=== PATIENT | male | born 1955 | race Caucasian/White ===

== ENCOUNTER → 2020-05-17 14:24 | Outpatient (CLI) | payer BC, SELFPAY | PROVIDERS: PCP Family Medicine; Visit Provider Physician Assistant | DX: R00.1 Bradycardia, unspecified (principal) | CPT/HCPCS: 93225; 93226 ==

== ENCOUNTER → 2020-06-05 14:51 | Outpatient (CLI) | payer BC, SELFPAY ==
--- NOTE | 2020-06-05 14:56 | CA_ITS ---
APPROVED REPORT EXAM: Comprehensive 2D, Doppler, and color-flow Echocardiogram Control Officer: Criss Gilliam RVT Ht: 6 ft 4 in Wt: 250lbs BSA: 2.44 BP: 190/90 mmHg Indications: HTN,PEDERSON 2D Dimensions LVOT 2.57 cm (M/F) 1.5-2.5 LA Volume 22.60 mL LA Volume Index 9.30 mL/m2 (M/F) 16-34 M-Mode Dimensions RVDd 2.72 cm (0.9-2.6) LA Diam 3.88 cm (1.9-4.0) LVDd 4.97 cm (3.5-5.7) Ao Diam 3.64 cm (2.0-3.7) LVDs 3.27 cm (3.5-5.7) IVSd 1.15 cm (0.6-1.1) PWd 0.98 cm (0.6-1.1) EF (Teich) 63.00% FS 34.20% EDV (Teich) 116.60 mL ESV (Teich) 43.20 mL LV Diastology E Decel Time 247.00 (160-240 msec) E/A Ratio 1.0 MED E' 6.50 (< 7 cm/sec) E'/MED E' Ratio 9.95 (>14) LAT E' 6.80 (<10 cm/sec) E/LAT E' Ratio 9.51 (>14) Aortic Valve AI PHT 2288.00 ms Mitral Valve MV E Max Seth. 65.00 (40-130 cm/s) MV A Velocity 64.00 (40-130 cm/s) E/A Ratio 1.01 MV Decel. Time 247.00 (160-240 ms) MV PHT 72.00 ms Pulmonary Valve PV Peak Velocity 92.00 (50-150 cm/s) Tricuspid Valve TR P. Velocity 276.00 cm/s RAP Estimate 10.00 mmHg RVSP 40.50 mmHg Left Ventricle Left atrium is mildly enlarged, left ventricle is normal size, mild concentric left ventricular hypertrophy, visually estimated ejection fraction 55% with no regional wall motion abnormality. Grade 1 diastolic dysfunction seen without tissue Doppler evidence of raise left atrial pressure. Right Ventricle Right atrium and right ventricle are mildly enlarged with normal contractility. Aortic Valve Aortic valve is minimally thickened and fibrosed, there is no aortic stenosis, there is mild aortic insufficiency. Mitral Valve Mitral valve is grossly normal, there is trace mitral regurgitation. Tricuspid Valve Tricuspid grossly normal, there is trace tricuspid regurgitation, tricuspid regurgitation jet velocity is inadequate for calculation of the right ventricular systolic pressure. Pulmonic Valve Pulmonic valve is poorly visualized. Great Vessels Aortic root is normal size. Pericardium No significant pericardial effusion noted. Conclusion 1. Mild biatrial enlargement, normal left ventricular size, mild concentric left ventricular hypertrophy, visually estimated ejection fraction 55% with no regional wall motion abnormality, grade 1 diastolic dysfunction seen without tissue Doppler evidence of raise left atrial pressure. 2. Mild aortic, trace mitral and tricuspid regurgitation. 3. No significant pericardial effusion noted. Electronically signed by : Blair Beach, 06/06/2020 16:05:30
== END ==
PROVIDERS: PCP Family Medicine; Visit Provider Physician Assistant
DX: I10 Essential (primary) hypertension (principal)
CPT/HCPCS: 93306

== ENCOUNTER 2020-11-02 09:52 | Outpatient (CLI) | payer MEDICARE, SELFPAY ==
[2020-11-02] VITALS (8 sets, daily range): BP systolic 105–149; BP diastolic 70–82; PULSE 62–73; RESP 16–20; TEMP 36.9–37.2; O2SAT 91–96
== END 2020-11-02 13:04 | disposition home or self-care (01) ==
PROVIDERS: PCP Family Medicine; Visit Provider Physician Assistant
DX: U07.1 COVID-19 (principal)
CPT/HCPCS: 96365

== ENCOUNTER → 2021-03-21 17:06 | Outpatient (CLI) | payer MEDICARE, SELFPAY ==
--- NOTE | 2021-03-22 13:21 | PC.NURSE ---
PATIENT NOTIFIED OF POSITIVE COVID TEST AT THIS TIME
== END ==
PROVIDERS: PCP Family Medicine; Visit Provider Nurse Practitioner
DX: U07.1 COVID-19 (principal)
CPT/HCPCS: C9803; U0003; U0005

== ENCOUNTER → 2021-03-31 06:04 | Outpatient (CLI) | payer MEDICARE, SELFPAY ==
--- NOTE | 2021-03-31 06:06 | CA_ITS ---
FINAL REPORT TECHNIQUE: Grayscale, color Doppler and duplex Doppler ultrasound of the kidneys, aorta and renal arteries was performed. Multiple velocities were measured. CLINICAL HISTORY: .HTN FINDINGS: Aorta velocity: 100 cm/sec Right kidney: 11.9 cm. No evidence of hydronephrosis or mass. Right intrarenal RI: 0.70 Right renal artery velocity: 146 cm/sec. Right RAR (Renal artery-Aortic Ratio): 1.73 Left Kidney: 11.5 cm. No evidence of hydronephrosis or mass. Left intrarenal RI: 0.68 Left renal artery velocity: 170 cm/sec. Left RAR (Renal Artery-Aortic Ratio): 1.80 IMPRESSION: No evidence of significant renal artery stenosis. CT angiogram or postcontrast MR angiogram would be more sensitive for evaluation of possible renal artery stenosis. Reviewed, Interpreted and Dictated by Storm Henderson III, MD Transcribed by Ananth Chamorro Authenticated by Storm Henderson III, MD on 03/31/2021 10:37:36 AM [facility]
--- NOTE | 2021-03-31 06:06 | NM_ITS ---
APPROVED REPORT Exam: Nuclear Stress Test Indication: chest pain..short of breath Patient Location: Outpatient Stress Tech: Elsa Queen [place] Tech:Debby YuenJANY RT(R)(N) Ht: 6 ft 4 in Wt: 240 lbs HR: 60 bpm BP: 168/89 mmHg BSA: 2.39 m2 BMI: 29.2 History: chest pain..short of breath Procedure: Patient exercised on Ron protocol 10:30 minutes and sec, resting heart rate 60 bpm, resting blood pressure 168/89 mmHg, with exercise maximum heart rate achived was 122 bpm which is 105 % of the maximum predicted heart rate and blood pressure was 198/110 mmHg. Patient denied any complaint of chest pain. Patient has good exercise capacity, achieved 12.8 METs of workload on treadmill, the blood pressure response to exercise was Hypertensive. Electrocardiogram Resting electrocardiogram shows sinus rhythm, with exercise there is less than 1.[address] segment depression noted from the baseline EKG. The EKG portion of the exercise Myoview is negative for ischemia. Cardiac Stress and Resting SPECT Images: Cardiac Stress and Resting SPECT images were obtained using technetium 99m Myoview 30.7 mCi stress and 10.04 mCi at rest. Gated SPECT for analysis of segmental wall motion and calculation of the ejection fraction also done. Cardiac stress and rest SPECT images show uniform myocardial activity without segmental perfusion abnormality, computer derived ejection fraction is 56% with no regional wall motion abnormality, right ventricle is normal size and contractility. Conclusion: 1. The EKG portion of the exercise Myoview is negative for ischemia, patient has good exercise capacity achieved 12.8 METs of workload on treadmill, the blood pressure response to exercise was hypertensive, there was no exercise-induced chest discomfort. 2. No scintigraphic evidence of reversible ischemia seen, computer derived ejection fraction is 56% with no regional wall motion abnormality, right ventricle is normal size and contractility. 3. Normal exercise Myoview study except for hypertensive blood pressure response. Electronically signed by : Blair Beach MD 03/31/2021 18:00:27
--- NOTE | 2021-03-31 06:06 | CA_ITS ---
APPROVED REPORT Exam: Exercise Treadmill Technologist: Elsa Queen, Ht: 6 ft 4 in Wt: 246 lbs BSA: 2.42 m2 HR: 60 bpm BP: 168/89 mmHg Medical History Medications: Amlodipine,,,,, Lisinopril,,,,, Vitamin C,,,,, HCTZ,,,,, Iron,,,,, Multivitamin,,,,, Stress Test Details Test: Ron HR Resting HR: 66 bpm Max Heart Rate (APMHR): 155.746337 bpm Max HR Achieved: 138 bpm Target HR (85% APMHR): 131.362717 bpm % of APMHR: 89.03 Recovery HR: 88 bpm BP Resting BP: 174/104 mmHg Max BP: 206/100 mmHg Recovery BP: 179.0/94.0 mmHg ECG Resting ECG: NSR Clinical Reason for Termination: Dyspnea Exercise duration: 10:30 min Highest Stage Achieved: Exercise capacity: 12.8 METs Stress ECG Conclusion Stages 1 and 2: Frequent PVCs/Quadrigeminy Stage 3: Frequent PVC's Stage 4: No PVC's 10:30 Min Max HR: 138 % of PM: 105 Max BP: 198/110 METs: 12.8 Test stopped due to: SOA Symptoms: No CP Arrhythmias/Ectopy: PVC's/Quadrigeminy resolved at Peak Stress ST-T Changes: <1.5mm ST Segment changes Conclusion: Negative. Hypertensive before test. Test Summary RECOVERY 04:00 0.0 0.0 89 . 206/100 . . Stage 1 01:00 10.0 1.7 90 . . . . Stage 1 02:00 10.0 1.7 100 . . . . Stage 1 03:00 10.0 1.7 97 . 170/ 98 . . Stage 2 01:00 12.0 2.5 104 . . . . Stage 2 02:00 12.0 2.5 104 . . . . Stage 2 03:00 12.0 2.5 107 . 190/100 . . Stage 3 01:00 14.0 3.4 114 . . . . Stage 3 02:00 14.0 3.4 120 . . . . Stage 3 03:00 14.0 3.4 121 . 198/110 . . Stage 4 01:00 16.0 4.2 132 . . . . Stage 4 01:30 16.0 4.2 136 . . . Stop exercise at 10:30 RECOVERY 01:00 0.0 0.0 115 . . . . RECOVERY 02:00 0.0 0.0 91 . . . . RECOVERY 03:00 0.0 0.0 83 . 206/100 . . RECOVERY 04:00 0.0 0.0 89 . 206/100 . . RECOVERY 05:00 0.0 0.0 87 . 206/100 . . RECOVERY 05:12 0.0 0.0 87 . 179/ 94 . . Electronically signed by : Blair Beach MD 03/31/2021 12:45:01
== END ==
PROVIDERS: PCP Family Medicine; Visit Provider Nurse Practitioner Family
DX: I10 Essential (primary) hypertension (principal); G47.33 Obstructive sleep apnea (adult) (pediatric); R06.00 Dyspnea, unspecified; R07.89 Other chest pain; R94.31 Abnormal electrocardiogram [ECG] [EKG]
CPT/HCPCS: 78452; 93017; 93976; A9502

== ENCOUNTER → 2021-04-11 12:29 | Outpatient (CLI) | payer MEDICARE, SELFPAY ==
--- NOTE | 2021-04-11 12:30 | US_ITS ---
FINAL REPORT CLINICAL HISTORY: enlarged thyroid FINDINGS: THYROID ULTRASOUND The right lobe of the thyroid measures 4.0 x 1.8 x 1.6 cm. The left lobe of the thyroid measures 3.6 x 1.7 x 1.4 cm. The parenchyma shows normal echogenicity. There are 2 small cysts in the right lobe of the thyroid measuring up to 4 mm consistent with TI-RADS 1. No dominant mass is seen. IMPRESSION: 2 small right thyroid cysts consistent with TI-RADS 1. No follow-up recommended. Reviewed, Interpreted and Dictated by Marco Ayon MD Transcribed by Ananth Chamorro Authenticated by Marco Ayon MD on 04/11/2021 02:51:11 PM [facility]
== END ==
PROVIDERS: PCP Family Medicine; Visit Provider Specialist
DX: E04.9 Nontoxic goiter, unspecified (principal); R53.82 Chronic fatigue, unspecified
CPT/HCPCS: 76536

== ENCOUNTER → 2021-05-02 14:40 | Outpatient (CLI) | payer MEDICARE, SELFPAY | PROVIDERS: PCP Family Medicine; Visit Provider Specialist | DX: G47.33 Obstructive sleep apnea (adult) (pediatric) (principal); I10 Essential (primary) hypertension | CPT/HCPCS: G0399 ==

== ENCOUNTER → 2021-05-19 12:46 | Outpatient (CLI) | payer MEDICARE, SELFPAY ==
[2021-05-19 13:40] VITALS: PULSE 58; PULSE 62
--- NOTE | 2021-05-19 14:22 | XR_ITS ---
FINAL REPORT CLINICAL HISTORY: nocturnal hypoxemia FINDINGS: Two views of the chest were obtained. The heart size and pulmonary vascularity are within normal limits. The mediastinum is normal. No acute pulmonary abnormality is identified. There is no pneumothorax. There are mild and moderate degenerative changes of the thoracic spine. IMPRESSION: No active cardiopulmonary disease. Reviewed, Interpreted and Dictated by Storm Henderson III, MD Transcribed by Taylor Beaulieu Authenticated by Storm Henderson III, MD on 05/19/2021 04:24:58 PM [facility]
[2021-05-19 17:11] LABS: Thyroid Stimulating Hormone 3.65 uIU/mL (0.465-4.68)
[2021-05-19 17:29] LABS: Vitamin B12 494 pg/mL (239-931)
== END ==
PROVIDERS: PCP Family Medicine; Visit Provider Nurse Practitioner Family
DX: G47.34 Idiopathic sleep related nonobstructive alveolar hypoventilation (principal); R93.89 Abnormal findings on diagnostic imaging of other specified body structures; R53.83 Other fatigue
CPT/HCPCS: 36415; 71046; 82607; 84443; 94060; 94618; 94640; 94727; 94729

== ENCOUNTER → 2021-06-02 13:36 | Outpatient (CLI) | payer MEDICARE, SELFPAY | PROVIDERS: Visit Provider Nurse Practitioner Family | DX: Z01.812 Encounter for preprocedural laboratory examination (principal); Z11.52 Encounter for screening for COVID-19 | CPT/HCPCS: C9803; U0003; U0005 ==

== ENCOUNTER → 2021-06-03 21:02 | Outpatient (CLI) | payer MEDICARE, SELFPAY | PROVIDERS: PCP Family Medicine; Visit Provider Nurse Practitioner Family | DX: G47.39 Other sleep apnea (principal); G47.36 Sleep related hypoventilation in conditions classified elsewhere; R09.02 Hypoxemia | CPT/HCPCS: 95810 ==

== ENCOUNTER → 2021-06-04 15:39 | Outpatient (CLI) | payer MEDICARE, SELFPAY ==
[2021-06-04 17:18] LABS: Anion Gap 10.9 mEq/L (5-15); Blood Urea Nitrogen 18 mg/dl (9-20); Calcium 9.3 mg/dl (8.4-10.2); Carbon Dioxide 28 mmol/L (22.0-30.0); Chloride 104 mmol/L (98-107); Estimated Glomerular Filt Rate 85 ml/min (>60); GFR (African American) 102 ML/MIN (>60); Glucose 90 mg/dl (74-100); Potassium 3.9 mmoL/L (3.5-5.1); Sodium 139 mmol/L (136-145)
== END ==
PROVIDERS: Visit Provider Nurse Practitioner Family
DX: G47.33 Obstructive sleep apnea (adult) (pediatric) (principal); I10 Essential (primary) hypertension; R25.2 Cramp and spasm; R94.31 Abnormal electrocardiogram [ECG] [EKG]
CPT/HCPCS: 36415; 80048

== ENCOUNTER → 2021-07-08 16:45 | Outpatient (CLI) | payer MEDICARE, SELFPAY ==
[2021-07-08 16:59] LABS: Coronavirus 19, PCR Not Detected (NotDetected); Influenza A, PCR Not Detected (NotDetected); Influenza B, PCR Not Detected (NotDetected)
== END ==
PROVIDERS: PCP Family Medicine; Visit Provider Nurse Practitioner Family
DX: Z01.812 Encounter for preprocedural laboratory examination (principal); Z11.52 Encounter for screening for COVID-19
CPT/HCPCS: C9803; U0003; U0005

== ENCOUNTER → 2021-07-09 21:02 | Outpatient (CLI) | payer MEDICARE, SELFPAY | PROVIDERS: PCP Family Medicine; Visit Provider Nurse Practitioner Family | DX: G47.33 Obstructive sleep apnea (adult) (pediatric) (principal); R09.02 Hypoxemia; G47.36 Sleep related hypoventilation in conditions classified elsewhere; G47.39 Other sleep apnea | CPT/HCPCS: 95811 ==

== ENCOUNTER 2021-11-04 18:11 | Emergency (ER) | payer MEDICARE, SELFPAY ==
--- NOTE | 2021-11-04 18:22 | PC.NURSE ---
Went to registration to view patient, with foreign body in eye. Patient stated that he was picking up a rock, blinked and felt something in eye. Eye was not watering, mildly irritated. Waiting to get room.
[2021-11-04 19:54] VITALS: BP 0/0; PULSE 0; RESP 0; TEMP -17.7; TEMP 0
== END 2021-11-04 19:55 | disposition left against medical advice (07) ==
LOC: ER 19:08
PROVIDERS: Emergency Provider Emergency Medicine; PCP Family Medicine
DX: Z53.21 Procedure and treatment not carried out due to patient leaving prior to being seen by health care provider (principal)

== ENCOUNTER 2022-01-26 14:32 | Emergency (ER) | payer MEDICARE, SELFPAY ==
[2022-01-26 16:44] VITALS: BP 0/0; PULSE 0; RESP 0; TEMP -17.7; TEMP 0
== END 2022-01-26 16:45 | disposition left against medical advice (07) ==
PROVIDERS: Emergency Provider Nurse Practitioner; PCP Family Medicine
DX: R07.9 Chest pain, unspecified (principal); R94.31 Abnormal electrocardiogram [ECG] [EKG]; Z03.89 Encounter for observation for other suspected diseases and conditions ruled out; I10 Essential (primary) hypertension; G47.33 Obstructive sleep apnea (adult) (pediatric); Z79.82 Long term (current) use of aspirin; Z79.899 Other long term (current) drug therapy; Z53.21 Procedure and treatment not carried out due to patient leaving prior to being seen by health care provider

== ENCOUNTER → 2022-03-11 15:12 | Outpatient (CLI) | payer MEDICARE, SELFPAY ==
[2022-03-11 16:05] LABS: Chloride 102 mmol/L (98-107); Potassium 4.1 mmoL/L (3.5-5.1); Sodium 138 mmol/L (136-145)
[2022-03-11 16:07] LABS: Bilirubin,Unconjugated 0.4 mg/dL (0.0-1.1); Blood Urea Nitrogen 16 mg/dl (9-20); Estimated Glomerular Filt Rate 75 ml/min (>60); GFR (African American) 90 ML/MIN (>60)
[2022-03-11 16:08] LABS: Alanine Aminotransferase 35 U/L (12-78); Albumin Level 4.2 g/dl (3.5-5.0); Alkaline Phosphatase 85 U/L (38-126); Anion Gap 11.1 mEq/L (5-15); Aspartate Amino Transferase 32 U/L (17-59); Bilirubin,Direct 0.2 mg/dl (0.0-0.4); Bilirubin,Indirect 0.4 mg/dL (0.0-0.9); Bilirubin,Total 0.6 mg/dl (0.2-1.3); Calcium 9.1 mg/dl (8.4-10.2); Carbon Dioxide 29 mmol/L (22.0-30.0); Cholesterol 210 mg/dl (140-200); Glucose 85 mg/dl (74-100); Magnesium 1.9 mg/dl (1.6-2.3); Total Protein,Serum 6.9 g/dl (6.3-8.2); Triglycerides 90 mg/dl (30-150); VLDL Cholesterol 18 mg/dL (0-40)
[2022-03-11 16:09] LABS: Chol/HDL Ratio 3.5 (1-3.5); HDL Cholesterol 60 mg/dl (40-60)
[2022-03-11 16:20] LABS: Direct LDL Cholesterol 111.88 mg/dL (100-129)
[2022-03-11 16:25] LABS: Free T4 (Free Thyroxine) 0.86 ng/dl (0.78-2.19)
[2022-03-11 16:34] LABS: Basophils # 0.1 K/mm3 (0-0.2); Basophils % 0.9 % (0.1-2.0); Eosinophils # 0.4 K/mm3 (0.0-0.4); Hematocrit 41.3 % (42.0-52.0); Hemoglobin 13.9 g/dL (14.1-18.0); Lymphocytes # 2.3 K/mm3 (0.7-4.5); Lymphocytes % 28.9 % (10-50); Mean Corpuscular HGB Conc 33.7 g/dL (31.8-35.4); Mean Corpuscular Hemoglobin 33.1 pg (27.0-31.2); Mean Corpuscular Volume 98.2 fl (80-94); Mean Platelet Volume 8.8 fl (7.4-10.4); Monocytes # 0.7 K/mm3 (0.1-1.0); Monocytes % 8.2 % (1.7-9.3); Neutrophils # 4.5 K/mm3 (1.8-7.8); Neutrophils % 56.8 % (37.0-80.0); Platelet Count 269 K/mm3 (142-424); Red Blood Count 4.21 M/mm3 (4.60-6.20); Red Cell Distribution Width 13.7 % (11.5-17.5)
[2022-03-11 16:39] LABS: Thyroid Stimulating Hormone 2.52 uIU/mL (0.465-4.68)
== END ==
PROVIDERS: PCP Family Medicine; Visit Provider Nurse Practitioner
DX: R07.9 Chest pain, unspecified (principal); E78.5 Hyperlipidemia, unspecified; I10 Essential (primary) hypertension; R94.31 Abnormal electrocardiogram [ECG] [EKG]; Z79.899 Other long term (current) drug therapy
CPT/HCPCS: 36415; 80048; 80061; 80076; 83735; 84439; 84443; 85025

== ENCOUNTER 2022-09-02 09:34 | Day surgery (SDC) | payer MEDICARE, SELFPAY ==
[2022-09-02 10:40] VITALS: BP 137/70; PULSE 52; RESP 16; TEMP 36.6; O2SAT 98; BMI 30.4
[2022-09-02 11:13] VITALS: O2SAT 98
--- NOTE | 2022-09-02 11:33 | [facility].SCOPE ---
Procedure: Date: 09/02/22 Patient Date of :: 1955 Procedure Performed:: Colonoscopy Indications:: Surveillance colonoscopy for history of polyps in the past Performing Provider:: Jonas Venegas MD Referring Provider:: Tonja Luna APRN Sedation:: See rn records Procedure:: After placing the patient in the left lateral decubitus position, the colonoscopy was gently inserted into the rectum and under direct visualization advanced to the cecum which was identified by transillumination in the right lower quadrant, identification of the ileocecal valve, appendiceal orifice, and cecal strap. Color, texture, mucosa, and anatomy of the colon were carefully examined with the scope. Findings:: Anal canal: normal Rectum: hemorrhoids Sigmoid colon: normal without polyps or inflammatory changes Descending colon: normal without polyps or inflammatory changes Splenic flexure: normal Transverse colon: normal without polyps or inflammatory changes Hepatic flexure: normal Ascending colon: normal without polyps or inflammatory changes Cecum: normal Terminal ileum: not visualized Impression: normal appearing colon Recommendations:: Repeat colonoscopy in 5 years Complications:: none Estimated blood obtained (mL): 0 Colonoscopy Component Colonoscopy Component Was a colonoscopy performed during today's procedure?: Yes Recommended follow up colonoscopy of at least 10 years?: Yes
[2022-09-02 11:34] VITALS: BP 92/51; PULSE 57; RESP 18; TEMP 36.3; O2SAT 91
[2022-09-02 11:44] VITALS: BP 90/51; PULSE 51; RESP 18; TEMP 36.3; O2SAT 93
[2022-09-02 11:54] VITALS: BP 119/69; PULSE 49; RESP 18; TEMP 36.3; O2SAT 93
[2022-09-02 12:04] VITALS: BP 120/70; PULSE 45; RESP 18; TEMP 36.3; O2SAT 95
== END 2022-09-02 12:04 | disposition home or self-care (01) ==
PROVIDERS: PCP Family Medicine; Visit Provider Internal Medicine
PROC: 0DJD8ZZ Inspection of Lower Intestinal Tract, Via Natural or Artificial Opening Endoscopic (ICD-10-PCS; CPT 45378; principal; 2022-09-02 11:00)
DX: Z12.11 Encounter for screening for malignant neoplasm of colon (principal); K64.8 Other hemorrhoids
CPT/HCPCS: G0105

== ENCOUNTER → 2023-02-11 16:22 | Outpatient (CLI) | payer MEDICARE, SELFPAY ==
--- NOTE | 2023-02-11 16:26 | XR_ITS ---
PROCEDURE INFORMATION: Exam: XR Left Foot Exam date and time: 02/11/2023 4:29 PM Age: 67 years old Clinical indication: Pain; Foot; Left; Additional info: Pain in left foot TECHNIQUE: Imaging protocol: Radiologic exam of the left foot. Views: 3 or more views. COMPARISON: No relevant prior studies available. FINDINGS: Bones/joints: Degenerative changes in the 1st metatarsal phalangeal joint. Degenerative changes in the tarsal bones and in the medial and lateral malleolus. Unhealed avulsion fracture adjacent to the medial malleolus. There is no evidence of acute fracture in any of the visualized osseous structures.. There is no evidence of malalignment or dislocation of any visualized joint. Soft tissues: Normal. IMPRESSION: 1. There is no evidence of acute fracture in any of the visualized osseous structures.. 2. There is no evidence of malalignment or dislocation of any visualized joint.
== END ==
PROVIDERS: PCP Family Medicine; Visit Provider Physician Assistant
DX: M79.672 Pain in left foot (principal)
CPT/HCPCS: 73630